=== PATIENT | female | born 1970 | race Caucasian/White ===

== ENCOUNTER → 2016-12-18 | Outpatient (REF) | payer OTHER | LOC: M LAB REF 17:16 | PROVIDERS: ATTEND Family Medicine | DX: B37.3 Candidiasis of vulva and vagina (principal) ==

== ENCOUNTER → 2017-06-13 | Outpatient (REF) | payer OTHER ==
[2017-06-13 19:42] LABS: INTERNAL CONTROL INVALID
[2017-06-13 20:23] LABS: INFLUENZA A AMPLIFICATION NEGATIVE (NEGATIVE); INFLUENZA B AMPLIFICATION NEGATIVE (NEGATIVE)
== END ==
LOC: M LAB REF 17:19
DX: R50.9 Fever, unspecified (principal)

== ENCOUNTER → 2017-12-06 | Outpatient (REF) | payer OTHER ==
[2017-12-13 10:11] LABS: HPV LOW VOL RFLX Negative (Negative)
== END ==
LOC: M LAB REF 15:42
DX: Z01.419 Encounter for gynecological examination (general) (routine) without abnormal findings (principal); Z11.51 Encounter for screening for human papillomavirus (HPV); R87.610 Atypical squamous cells of undetermined significance on cytologic smear of cervix (ASC-US)

== ENCOUNTER → 2018-02-10 | Outpatient (CLI) | payer OTHER ==
[~2018-02-10] MED LIST: GASTROGRAFIN SOLUTION 30ML (Q9963) As Ordered; ISOVUE-370 76% 100ML VIAL (Q9967) As Ordered
== END ==
LOC: M RAD 12:43
DX: R10.84 Generalized abdominal pain (principal)
CPT/HCPCS: Q9963

== ENCOUNTER 2018-03-27 10:11 | Day surgery (SDC) | payer OTHER ==
[2018-03-27] MEDS: NS 1,000 ML IV (10:30)
[2018-03-27] MEDS ORDERED: LIDOCAINE 2% INJ 100 MG/5 ML SDV (FOR ANES.) As Ordered (11:26)
[2018-03-27] MEDS ORDERED: PROPOFOL 200 MG/20 ML VIAL As Ordered ×3 (11:26→12:13)
== END 2018-03-27 12:47 | disposition home or self-care (01) ==
LOC: M OPP 10:11
DX: R10.84 Generalized abdominal pain (principal); R10.13 Epigastric pain; Z80.0 Family history of malignant neoplasm of digestive organs; K59.00 Constipation, unspecified; D12.0 Benign neoplasm of cecum; D12.5 Benign neoplasm of sigmoid colon; K57.30 Diverticulosis of large intestine without perforation or abscess without bleeding; K64.8 Other hemorrhoids
CPT/HCPCS: 45385

== ENCOUNTER → 2019-01-15 | Outpatient (CLI) | payer OTHER ==
[~2019-01-15] MED LIST changes: +ADVI200T PO; +DICY10CA13 PO; -GASTROGRAFIN SOLUTION 30ML (Q9963) As Ordered; -ISOVUE-370 76% 100ML VIAL (Q9967) As Ordered; +SIME80TA5 PO; +TYLE325T5 PO
--- NOTE | 2019-01-15 10:03 | REP ---
Left shoulder series: Three views. History: Pain in the left shoulder. Findings: Glenohumeral and acromioclavicular joints are normally aligned. No fractures seen. No erosive changes seen. Periarticular soft tissues are unremarkable. Impression: No bony abnormality. Electronically Signed by Leif Herring MD 01/15/2019 09:55 A
== END ==
LOC: M SMT 09:08
PROVIDERS: ATTEND Family Medicine
DX: M25.512 Pain in left shoulder (principal)

== ENCOUNTER → 2019-07-14 | Outpatient (CLI) | payer OTHER ==
--- NOTE | 2019-07-14 09:38 | REP ---
MRI left shoulder without contrast: History: Impingement syndrome. Comparison shoulder radiographs January 15, 2019. Technique: Axial, oblique coronal and oblique sagittal imaging planes were utilized. T1 and T2-weighted scans were obtained in the usual fashion with and without fat saturation. MRI findings: Glenohumeral and acromioclavicular joints are normally aligned. Cortical and medullary bone signal intensity are normal except for a thin strip of marrow edema in the subcortical bone of the superior aspect of the humeral head somewhat medial to the distal supraspinatus tendon attachment. There is no evidence of full-thickness rotator cuff tear. Mild supraspinatus tendinosis is seen. There is mild inferior and lateral spurring of the acromion process. Minimal AC joint hypertrophy is noted. There is no evidence of glenohumeral or significant subacromial subdeltoid bursal fluid. There is some irregularity and increased signal intensity underlying the superior labral articular cartilage. Mild chondromalacia is seen on the glenoid. No displaced labral cartilage tear. The infraspinatus, subscapularis, and biceps tendons have an intact appearance. No juxtaarticular cyst or mass is seen. Skeletal muscle signal intensity and contours are normal. Impression: Mild supraspinatus tendinosis. Degenerative fraying and irregular increased signal intensity under the superior labral cartilage. Mild glenoid chondromalacia. Minimal acromion process spurring. Electronically Signed by Leif Herring MD 07/14/2019 05:54 P
== END ==
LOC: M RAD 07:49
PROVIDERS: ATTEND Orthopaedic Surgery Hand Surgery
DX: M94.212 Chondromalacia, left shoulder (principal); M25.712 Osteophyte, left shoulder; M75.42 Impingement syndrome of left shoulder

== ENCOUNTER → 2021-05-15 | Outpatient (CLI) | payer OTHER ==
[~2021-05-15] MED LIST changes: +SIME80TA12 PO; -SIME80TA5 PO
--- NOTE | 2021-05-15 15:53 | REPMRS ---
Patient History The patient states she had a clinical breast exam in December2020. Patient is postmenopausal and had first child at age 36. Family history of colorectal cancer at age 52 in father. Benign cyst aspiration of the left breast. Tomosynthesis is performed. [place] breast density is b. [facility]%. Patient states no breast complaints today. Patient has signed MRS History Sheet. Digital Woman Screen Mammo: May 15, 2021 - Exam #: [id number] Bilateral CC and MLO view(s) were taken. Technologist: Neha Kidd, Technologist Prior study comparison: April 12, 2020, bilateral digital mammo screening bilat, performed at [facility] [employer]. March 17, 2019, bilateral digital mammo screening bilat, performed at [facility]. FINDINGS: There are scattered fibroglandular densities. There has been no change in the appearance of the mammogram from the prior studies. There is a mild amount of residual fibroglandular tissue which is fairly symmetric. There is no interval development of dominant mass, architectural distortion, or clustered microcalcification suggestive of malignancy. Assessment: BI-RADS/ACR category 1 mammogram. Negative Mammogram. Recommendation Routine screening mammogram in 1 year (for women over age 40). This mammogram was interpreted with the aid of an FDA-approved computer-aided dectection system. Electronically Signed By: Tra Belle MD 05/15/21 [id number]
--- NOTE | 2021-05-15 17:04 | DEXAMM ---
INDICATION: SCREEN OSTEO. COMPARISON: None. TECHNIQUE: Bone density was measured using dual-energy x-ray absorptiometry (DEXA). FINDINGS: AP SPINE L1-L4 BMD 1.319 g/cm2 Young Adult T-Score 1.0 Age Matched Z-Score 1.7. LT FEMUR, TOTAL BMD 1.151 g/cm2 Young Adult T-Score 1.1 Age Matched Z-Score 1.7. LT NECK BMD 1.089 g/cm2 Young Adult T-Score 0.4 Age Matched Z-Score 1.3. RT FEMUR, TOTAL BMD 1.149 g/cm2 Young Adult T-Score 1.1 Age Matched Z-Score 1.7. RT NECK BMD 1.130 g/cm2 Young Adult T-Score 0.7 Age Matched Z-Score 1.6. IMPRESSION: There is normal bone density of the spine. There is normal bone density of the left hip. There is normal bone density of the right hip. FOLLOW-UP: Recommendation for the next bone density exam: Five years. <Electronically signed by Tra Belle > 05/15/21 [id number]
== END ==
LOC: M WHC 14:09
PROVIDERS: ATTEND Family Medicine
DX: Z12.31 Encounter for screening mammogram for malignant neoplasm of breast (principal); Z13.820 Encounter for screening for osteoporosis; Z78.0 Asymptomatic menopausal state

== ENCOUNTER → 2022-05-28 | Outpatient (CLI) | payer OTHER | LOC: M WHC 15:48 | PROVIDERS: ATTEND Family Medicine | DX: Z12.31 Encounter for screening mammogram for malignant neoplasm of breast (principal) ==

== ENCOUNTER → 2022-06-12 | Outpatient (CLI) | payer OTHER ==
[2022-06-12 09:14] LABS: BASO % 0.6 % (0.0-1.0); EOS # 0.1 10^3/uL (0.0-0.5); EOS % 1.6 % (0.0-3.0); HEMATOCRIT 38.5 % (36.0-47.0); HEMOGLOBIN 12.1 g/dl (12.0-15.5); LYMPH # 1.7 10^3/uL (1.5-5.0); LYMPH % 33.7 % (24.0-44.0); MEAN CORPUSCULAR HEMOGLOBIN 28.4 pg (27.0-33.0); MEAN CORPUSCULAR HGB CONC 31.4 g/dl (32.0-36.5); MEAN CORPUSCULAR VOLUME 90.4 fl (80.0-96.0); MONO # 0.3 10^3/uL (0.0-0.8); MONO % 5.5 % (2.0-8.0); NEUTROPHILS % 58.2 % (36.0-66.0); PLATELET COUNT, AUTOMATED 232 10^3/uL (150-450); RED BLOOD COUNT 4.26 10^6/uL (4.00-5.40); WHITE BLOOD COUNT 5.1 10^3/uL (4.0-10.0)
[2022-06-12 09:39] LABS: ALKALINE PHOSPHATASE 76 U/L (46-116); ALT/SGPT 19 U/L (7.0-40); AST/SGOT 20 U/L (<34); BILIRUBIN,TOTAL 0.6 MG/DL (0.3-1.2); BLOOD UREA NITROGEN 18 MG/DL (9-23); CALCIUM LEVEL 9.5 MG/DL (8.5-10.1); CARBON DIOXIDE LEVEL 29 MMOL/L (20-31); CHLORIDE LEVEL 107 MMOL/L (98-107); CHOLESTEROL LEVEL 166 MG/DL (<200); CHOLESTEROL RISK RATIO 2.75 (<5); CREATININE FOR GFR 0.79 MG/DL (0.55-1.30); FREE T4 1.05 NG/DL (0.89-1.76); GLOMERULAR FILTRATION RATE > 60.0 (>51); GLUCOSE, FASTING 89 MG/DL (60-100); HDL CHOLESTEROL 60.3 MG/DL (>40); LDL CHOLESTEROL 91.7 MG/DL (<100); NON-HDL-C 106 MG/DL; POTASSIUM SERUM 4.3 MMOL/L (3.5-5.1); SODIUM LEVEL 140 MMOL/L (136-145); TOTAL PROTEIN 6.8 G/DL (5.7-8.2); TRIGLYCERIDES LEVEL 70 MG/DL (<150)
[2022-06-12 09:40] LABS: THYROID STIMULATING HORMONE 1.271 uIU/ML (0.55-4.78)
== END ==
LOC: M LAB 08:30
PROVIDERS: ATTEND Family Medicine
DX: Z13.29 Encounter for screening for other suspected endocrine disorder (principal); Z13.0 Encounter for screening for diseases of the blood and blood-forming organs and certain disorders involving the immune mechanism; Z13.220 Encounter for screening for lipoid disorders

== ENCOUNTER → 2023-06-21 | Outpatient (CLI) | payer OTHER ==
[~2023-06-21] MED LIST changes: +COLA100C5 PO; +DICY-61 PO; -DICY10CA13 PO
[2023-06-21 10:50] LABS: BASO % 0.7 % (0.0-1.0); EOS # 0.1 10^3/uL (0.0-0.5); EOS % 1.6 % (0.0-3.0); HEMATOCRIT 39.5 % (36.0-47.0); HEMOGLOBIN 12.4 g/dl (12.0-15.5); LYMPH # 1.8 10^3/uL (1.5-5.0); LYMPH % 40.4 % (24.0-44.0); MEAN CORPUSCULAR HEMOGLOBIN 27.7 pg (27.0-33.0); MEAN CORPUSCULAR HGB CONC 31.4 g/dl (32.0-36.5); MEAN CORPUSCULAR VOLUME 88.4 fl (80.0-96.0); MONO # 0.3 10^3/uL (0.0-0.8); MONO % 6.9 % (2.0-8.0); NEUTROPHILS # 2.2 10^3/uL (1.5-8.5); NEUTROPHILS % 50.4 % (36.0-66.0); PLATELET COUNT, AUTOMATED 229 10^3/uL (150-450); RED BLOOD COUNT 4.47 10^6/uL (4.00-5.40); WHITE BLOOD COUNT 4.4 10^3/uL (4.0-10.0)
[2023-06-21 11:10] LABS: ALBUMIN 3.8 G/DL (3.2-5.2); ALKALINE PHOSPHATASE 75 U/L (46-116); ALT/SGPT 18 U/L (7.0-40); AST/SGOT 13 U/L (<34); BILIRUBIN,TOTAL 0.6 MG/DL (0.3-1.2); BLOOD UREA NITROGEN 14 MG/DL (9-23); CALCIUM LEVEL 9.6 MG/DL (8.5-10.1); CARBON DIOXIDE LEVEL 31 MMOL/L (20-31); CHLORIDE LEVEL 107 MMOL/L (98-107); CHOLESTEROL LEVEL 169 MG/DL (<200); CHOLESTEROL RISK RATIO 2.58 (<5); CREATININE FOR GFR 0.75 MG/DL (0.55-1.30); GLOMERULAR FILTRATION RATE > 60.0 (>51); GLUCOSE, FASTING 73 MG/DL (60-100); HDL CHOLESTEROL 65.4 MG/DL (>40); LDL CHOLESTEROL 89.4 MG/DL (<100); NON-HDL-C 103.6 MG/DL; POTASSIUM SERUM 4.3 MMOL/L (3.5-5.1); SODIUM LEVEL 139 MMOL/L (136-145); TOTAL PROTEIN 6.5 G/DL (5.7-8.2); TRIGLYCERIDES LEVEL 71 MG/DL (<150)
[2023-06-21 11:13] LABS: FREE T4 1.05 NG/DL (0.89-1.76); THYROID STIMULATING HORMONE 1.694 uIU/ML (0.55-4.78)
[2023-06-21 11:14] LABS: TOTAL 25(OH) VITAMIN D 13.2 NG/ML (20.0-100.0)
== END ==
LOC: M WUC 08:08
PROVIDERS: ATTEND Family Medicine
DX: Z13.29 Encounter for screening for other suspected endocrine disorder (principal); Z13.0 Encounter for screening for diseases of the blood and blood-forming organs and certain disorders involving the immune mechanism; Z13.220 Encounter for screening for lipoid disorders; E55.9 Vitamin D deficiency, unspecified

== ENCOUNTER → 2023-06-24 | Outpatient (CLI) | payer OTHER | LOC: M WHC 16:26 | PROVIDERS: ATTEND Family Medicine | DX: Z12.31 Encounter for screening mammogram for malignant neoplasm of breast (principal) ==

== ENCOUNTER 2023-07-09 08:58 | Day surgery (SDC) | payer OTHER ==
[~2023-07-09] VITALS: Ht 165.1 cm; Wt 73.5 kg
[2023-07-09] MEDS: NS 1,000 ML IV ONE (09:13)
[2023-07-09 11:09] VITALS: TEMP 96.6
[2023-07-09 12:00] VITALS: BP 131/81; O2SAT 100
== END 2023-07-09 12:15 | disposition home or self-care (01) ==
LOC: M OPP 08:58
PROVIDERS: ATTEND Internal Medicine Gastroenterology
DX: Z12.11 Encounter for screening for malignant neoplasm of colon (principal); K63.5 Polyp of colon; Z86.010 Personal history of colon polyps; Z80.0 Family history of malignant neoplasm of digestive organs; Z88.0 Allergy status to penicillin

== ENCOUNTER → 2023-10-04 | Outpatient (CLI) | payer OTHER | LOC: M WUC 08:02 | PROVIDERS: ATTEND Family Medicine | DX: M25.561 Pain in right knee (principal) ==

== ENCOUNTER → 2023-10-22 | Outpatient (CLI) | payer OTHER | LOC: M PLAIMG 07:00 | PROVIDERS: ATTEND Family Medicine | DX: M85.461 Solitary bone cyst, right tibia and fibula (principal); M25.561 Pain in right knee; M67.51 Plica syndrome, right knee; M22.41 Chondromalacia patellae, right knee; M76.51 Patellar tendinitis, right knee ==

== ENCOUNTER → 2024-06-23 | Outpatient (CLI) | payer OTHER ==
[2024-06-23 11:18] LABS: BASO % 0.7 % (0.0-1.0); EOS # 0.1 10^3/uL (0.0-0.5); EOS % 3.2 % (0.0-3.0); HEMATOCRIT 38.4 % (36.0-47.0); HEMOGLOBIN 12.1 g/dl (12.0-15.5); LYMPH # 1.7 10^3/uL (1.5-5.0); LYMPH % 39.2 % (24.0-44.0); MEAN CORPUSCULAR HEMOGLOBIN 27.9 pg (27.0-33.0); MEAN CORPUSCULAR HGB CONC 31.5 g/dl (32.0-36.5); MEAN CORPUSCULAR VOLUME 88.7 fl (80.0-96.0); MONO # 0.4 10^3/uL (0.0-0.8); MONO % 8.6 % (2.0-8.0); NEUTROPHILS # 2.1 10^3/uL (1.5-8.5); NEUTROPHILS % 48.1 % (36.0-66.0); PLATELET COUNT, AUTOMATED 227 10^3/uL (150-450); RED BLOOD COUNT 4.33 10^6/uL (4.00-5.40); WHITE BLOOD COUNT 4.4 10^3/uL (4.0-10.0)
[2024-06-23 12:05] LABS: ALBUMIN 3.8 G/DL (3.2-5.2); ALKALINE PHOSPHATASE 65 U/L (35-104); ALT/SGPT 19 U/L (7.0-40); AST/SGOT 16 U/L (<34); BILIRUBIN,TOTAL 0.4 MG/DL (0.3-1.2); BLOOD UREA NITROGEN 17 MG/DL (9-23); CALCIUM LEVEL 9.5 MG/DL (8.5-10.1); CARBON DIOXIDE LEVEL 30 MMOL/L (20-31); CHLORIDE LEVEL 108 MMOL/L (98-107); CHOLESTEROL LEVEL 175 MG/DL (<200); CHOLESTEROL RISK RATIO 2.68 (<5); CREATININE FOR GFR 0.74 MG/DL (0.55-1.30); FREE T4 1.07 NG/DL (0.89-1.76); GLOMERULAR FILTRATION RATE > 60.0 (>51); GLUCOSE, FASTING 90 MG/DL (60-100); HDL CHOLESTEROL 65.2 MG/DL (>40); LDL CHOLESTEROL 96.2 MG/DL (<100); NON-HDL-C 109.8 MG/DL; POTASSIUM SERUM 4.4 MMOL/L (3.5-5.1); SODIUM LEVEL 142 MMOL/L (136-145); THYROID STIMULATING HORMONE 1.357 uIU/ML (0.55-4.78); TOTAL 25(OH) VITAMIN D 28.1 NG/ML (20.0-100.0); TOTAL PROTEIN 6.5 G/DL (5.7-8.2); TRIGLYCERIDES LEVEL 68 MG/DL (<150)
== END ==
LOC: M WUC 08:03
PROVIDERS: ATTEND Family Medicine
DX: E55.9 Vitamin D deficiency, unspecified (principal); Z13.220 Encounter for screening for lipoid disorders; Z13.0 Encounter for screening for diseases of the blood and blood-forming organs and certain disorders involving the immune mechanism; Z13.29 Encounter for screening for other suspected endocrine disorder

== ENCOUNTER → 2024-07-07 | Outpatient (CLI) | payer OTHER | LOC: M WHC 08:48 | PROVIDERS: ATTEND Family Medicine | DX: Z12.31 Encounter for screening mammogram for malignant neoplasm of breast (principal); R92.323 Mammographic fibroglandular density, bilateral breasts ==